=== PATIENT | male | born 1945 | race Caucasian/White ===

== ENCOUNTER 2017-12-27 11:35 | Day surgery (SDC) | payer OTHER ==
[~2017-12-27] VITALS: Ht 185.4 cm; Wt 76.4 kg
[2017-12-27] MEDS ORDERED: LACTATED RINGERS 1,000 ML IV SCH (12:05)
[2017-12-27] MEDS ORDERED: METO50TA4 PO (12:45)
[2017-12-27] MEDS ORDERED: LIPA1CAP61 PO (12:45)
[2017-12-27] MEDS ORDERED: WARF2TAB99 PO (12:45)
[2017-12-27] MEDS ORDERED: CIPR750T PO (12:45)
[2017-12-27] MEDS ORDERED: METR500T8 PO (12:45)
[2017-12-27] MEDS ORDERED: OMEP40CA6 PO (12:45)
[2017-12-27] MEDS ORDERED: ONDA4TAB12 PO (12:45)
[2017-12-27] MEDS ORDERED: OXYC1TAB9 PO (12:45)
[2017-12-27 12:46] VITALS: BP 121/73
[2017-12-27] MEDS ORDERED: FENTANYL PF 100 MCG/2ML ONE (13:06)
[2017-12-27] MEDS ORDERED: MIDAZOLAM 1 MG/ML, 2ML ONE (13:06)
[2017-12-27] MEDS ORDERED: SUCCINYLCHOLINE 20 MG/ML, 10ML ONE (13:13)
[2017-12-27] MEDS ORDERED: PROPOFOL 10 MG/ML, 20ML ONE ×2 (13:13→13:36)
[2017-12-27] MEDS ORDERED: KETAMINE 100 MG/ML, 5ML ONE (13:53)
[2017-12-27] MEDS ORDERED: ACETAMINOPHEN 325 MG TABLET PO PRN (14:30)
[2017-12-27] MEDS ORDERED: PROMETHAZINE 25 MG/ML, 1ML IV PRN (14:30)
[2017-12-27] MEDS ORDERED: OXYcodone 5 MG/5 ML ORAL.SOL UDC PO PRN (14:30)
[2017-12-27] MEDS ORDERED: LABETALOL 5MG/ML, 20ML IV PRN (14:30)
[2017-12-27] MEDS ORDERED: MORPHINE SULFATE 4 MG/ML, 1ML IVPush PRN (14:30)
[2017-12-27] MEDS ORDERED: MEPERIDINE/PF 25MG/0.5ML IVPush PRN (14:30)
[2017-12-27] MEDS ORDERED: hydrALAzine 20 MG/ML, 1ML IV PRN (14:30)
[2017-12-27] MEDS ORDERED: FENTANYL PF 100 MCG/2ML IV PRN (14:30)
== END 2017-12-27 16:05 ==
LOC: OUT 11:35
PROVIDERS: ATTEND Internal Medicine Geriatric Medicine
DX: K86.3 Pseudocyst of pancreas (principal); K86.9 Disease of pancreas, unspecified; I10 Essential (primary) hypertension; F10.10 Alcohol abuse, uncomplicated; Z90.49 Acquired absence of other specified parts of digestive tract; Z88.6 Allergy status to analgesic agent
CPT/HCPCS: 43259; 93005; J0330; J2250; J2704; J3010; J7120